=== PATIENT | male | born 1990 | race Caucasian/White ===

== ENCOUNTER 2018-08-26 12:48 | Emergency (ER) | payer OTHER ==
[~2018-08-26] VITALS: Ht 175.3 cm; Wt 97.5 kg
--- OUTSIDE RECORDS SUMMARY | 2018-08-26 12:53 | XMS REPORT ---
Author Author GREGORY ANDERSEN Organization [facility] Address [address] [place] [address] Care Team Providers Care Director Social Welfare Name Role Phone ROMEROJOSE ALFREDO TELLESDENISHA Unavailable PROBLEMS Type Condition ICD9-CM Code LUJ25-CX Code Onset Dates Condition Status SNOMED Code Problem Allergic rhinitis, cause unspecified 477.9 Active 81373226 Problem Open wound of finger(s), without mention of complication 883.[address] of occurrence, industrial places and premises E849.3 Active ALLERGIES No Known Allergies ENCOUNTERS Encounter Location Date Diagnosis [address] [id number] Mar, Irritation of right eye H57.[address] [id number] Oct, Acute bronchitis, unspecified organism J20.[address] [id number] Jun, Laceration of finger of left hand, subsequent encounter S61.219D and Visit for suture removal Z48.02 [address] [place] [id number] [place] [id number] May, Encounter for immunization Z23 [address] [id number] Sep, Sprain of left ankle, unspecified ligament, initial encounter S93.402A [address] [id number] Feb, Upper respiratory tract infection, unspecified type J06.9 [facility] [id number] [place] [address] 14 Jun, 2014 [facility] [address] [address] Jun, [facility] [address] [facility] [id number][place] [id number] May, [facility] [address] [facility] [id number] [place] [address] May, [facility] [address] [facility] [id number], [place] [id number] Dec, [facility] [address] [facility] [id number] [place] [address] Dec, [facility] [address] [facility] [id number], [place] [id number] May, [facility] [address] [facility] [id number] [place] [address] May, [facility] [address] [facility] [id number], [place] [id number] May, [facility] [address] [facility] [id number] [place] [address] May, [facility] [address] [facility] [id number], [place] [phone] Jun, IMMUNIZATIONS No Known Immunizations SOCIAL HISTORY Never Assessed REASON FOR VISIT here for suture removal from left hand, middle finger. marc Foreman PLAN OF CARE Activity Details Follow Up prn Reason: VITAL SIGNS Height 68 in 2016-07-02 Weight 215 lbs 2016-07-02 Temperature 98.2 degrees Fahrenheit 2016-07-02 Heart Rate 78 bpm 2016-07-02 Respiratory Rate 16 2016-07-02 BMI 32.69 kg/m2 2016-07-02 Blood pressure systolic 120 mmHg 2016-07-02 Blood pressure diastolic 72 mmHg 2016-07-02 MEDICATIONS Medication Instructions Dosage Frequency Start Date End Date Duration Status Claritin 10 MG Orally Once a day 1 tablet 24h Active Omeprazole 20 MG Orally Once a day 1 capsule 24h Active RESULTS No Results PROCEDURES No Known procedures INSTRUCTIONS MEDICATIONS ADMINISTERED No Known Medications
--- OUTSIDE RECORDS SUMMARY | 2018-08-26 12:53 | XMS REPORT ---
Author Author Migration, Doctor Organization [facility] Address Unknown Phone Unavailable Care Team Providers Care Account Maintenance Representative Name Role Phone Migration, Doctor Unavailable Unavailable PROBLEMS Type Condition ICD9-CM Code SLH97-RG Code Onset Dates Condition Status SNOMED Code Problem Open wound of finger(s), without mention of complication 883.0 Active 9508375 Problem Allergic rhinitis, cause unspecified 477.[address] of occurrence, industrial places and premises E849.3 Active ALLERGIES No Information ENCOUNTERS Encounter Location Date Diagnosis [place] [id number] [place] [id number] Mar, 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.[address] [id number] Aug, Myalgia M79.1 and Folliculitis L73.[address] [id number] Mar, Irritation of right eye H57.[address] [id number] Oct, Acute bronchitis, unspecified organism J20.[address] [id number] Jun, Laceration of finger of left hand, subsequent encounter S61.219D and Visit for suture removal Z48.02 [address] [id number] [place] [address] [id number] May, Encounter for immunization Z23 [address] [id number] Sep, Sprain of left ankle, unspecified ligament, initial encounter S93.402A [place] [id number] [place] [address] [id number] Feb, Upper respiratory tract infection, unspecified type J06.9 [facility] [address] [id number] [place] [address] Jun, [facility] [address] [facility] [id number], [place] [address] Jun, [facility] [address] [id number][place] [phone] May, [facility] [address] [facility] [id number], [place] [address] May, [facility] [id number], [place] [phone] Dec, [facility] [address] [facility] [id number], [place] [address] Dec, [facility] [address] [id number], [place] [phone] May, [facility] [address] [facility] [id number], [place] [address] May, [facility] [address] [id number][place] [id number] May, [facility] [address] [facility] [place] [place] [id number], [place] [address] May, [facility] [address] [facility] [id number][place] [phone] Jun, IMMUNIZATIONS No Known Immunizations SOCIAL HISTORY Never Assessed REASON FOR VISIT EMR-[facility] [place] [place] PLAN OF CARE VITAL SIGNS MEDICATIONS Medication Instructions Dosage Frequency Start Date End Date Duration Status Cljctmgk-Vsajquewg-FZ 3.5-10,000-1 mg/mL-unit/mL-% 2 drop by Otic route 4 times per day for 7 day(s) Dec, Active PredniSONE 20 mg 1 tablet by Oral route 2 times per day for 5 day(s) Jun, Active Augmentin 875-125 mg 1 tablet by Oral route 2 times per day for 7 day(s) May, Active RESULTS No Results PROCEDURES No Known procedures INSTRUCTIONS MEDICATIONS ADMINISTERED No Known Medications MEDICAL (GENERAL) HISTORY Type Description Date Surgical History No Surgical history information
--- OUTSIDE RECORDS SUMMARY | 2018-08-26 12:53 | XMS REPORT ---
Author Author PARISH DILLARD Organization [employer] Address Unknown Phone Unavailable Care Team Providers Care Utility Manager Name Role Phone PARISH DILLARD CP Unavailable Allergies, Adverse Reactions, Alerts Substance Reaction Event Type N.K.D.A. Info Not Available Non Drug Allergy Problems Problem Type Condition Code Onset Dates Condition Status Problem Open wound of finger(s), without mention of complication 883.0 Active Problem Allergic rhinitis, cause unspecified 477.[address] of occurrence, industrial places and premises E849.3 Active Assessment Sprain of left ankle, unspecified ligament, initial encounter S93.402A Active Medications Medication Code System Code Instructions Start Date End Date Status Dosage Claritin [facility] [address]-33 10 MG Orally Once a day 1 tablet Ibuprofen [facility] [address]-18 800 MG Orally Three times a day October 18, 2015 Nov 17, 2015 1 tablet Omeprazole [facility] [address]-94 20 MG Orally Once a day 1 capsule Procedures Procedure Coding System Code Date Office Visit, Est Pt., Level 3 CPT-4 48380 October 18, 2015 Vital Signs Date/Time: October 18, 2015 Cardiac Monitoring Heart Rate 72 bpm Weight 220.6 lbs Height 68 in Blood Pressure Diastolic 64 mmHg Blood Pressure Systolic 120 mmHg Results No Known Results Summary Purpose [employer] Submission
--- OUTSIDE RECORDS SUMMARY | 2018-08-26 12:53 | XMS REPORT ---
Author Author PARISH DILLARD Organization [employer] Address Unknown Phone Unavailable Care Team Providers Care Yard Jacker Name Role Phone PARISH DILLARD CP Unavailable Allergies, Adverse Reactions, Alerts Substance Reaction Event Type N.K.D.A. Info Not Available Non Drug Allergy Problems Problem Type Condition Code Onset Dates Condition Status Problem Open wound of finger(s), without mention of complication 883.0 Active Problem Allergic rhinitis, cause unspecified 477.[address] of occurrence, industrial places and premises E849.3 Active Assessment Upper respiratory tract infection, unspecified type J06.9 Active Medications No Known Medications Procedures Procedure Coding System Code Date Office Visit, Est Pt., Level 3 CPT-4 66416 Mar 14, 2015 Vital Signs Date/Time: Mar 14, 2015 Temperature 97.2 F Weight 219.0 lbs Height 68 in BMI 33.30 Index Blood Pressure Diastolic 68 mmHg Blood Pressure Systolic 126 mmHg Cardiac Monitoring Heart Rate 74 bpm Results No Known Results Summary Purpose [employer] Submission
--- OUTSIDE RECORDS SUMMARY | 2018-08-26 12:53 | XMS REPORT ---
Author Author PARISH DILLARD [facility] Address [address] [place] [address] Care Team Providers Care Bank Examiner Name Role Phone PARISH DILLARD Unavailable PROBLEMS Type Condition ICD9-CM Code MEH03-HP Code Onset Dates Condition Status SNOMED Code Problem Allergic rhinitis, cause unspecified 477.9 Active 48114192 Problem Open wound of finger(s), without mention of complication 883.[address] of occurrence, industrial places and premises E849.3 Active ALLERGIES No Known Allergies ENCOUNTERS Encounter Location Date Diagnosis [address] [id number] Aug, Myalgia M79.1 and Folliculitis L73.[address] [id number] Mar, Irritation of right eye H57.[address] [id number] Oct, Acute bronchitis, unspecified organism J20.[address] [id number] Jun, Laceration of finger of left hand, subsequent encounter S61.219D and Visit for suture removal Z48.[address] [id number] May, Encounter for immunization Z23 [address] [id number] Sep, Sprain of left ankle, unspecified ligament, initial encounter S93.402A [place] [id number] [place] [address] [id number] Feb, Upper respiratory tract infection, unspecified type J06.9 [facility] [id number] [place] [address] Jun, [facility] [address]00565100[place], [place] [address] Jun, [facility] [address] [id number], [place] [phone] May, [facility] [address] [id number], [place] [address] May, [facility] [id number], [place] [phone] Dec, [facility] [address] [facility] [id number], [place] [address] Dec, [facility] [id number], [place] [phone] May, [facility] [address]00565100[place], [place] [address] May, [facility] [id number], [place] [id number] May, [facility] [address] [facility] [id number], [place] [address] May, [facility] [address] [id number], [place] [phone] Jun, IMMUNIZATIONS No Known Immunizations SOCIAL HISTORY Never Assessed REASON FOR VISIT having left muscle pain above shoulder x 2 months, just getting worse. marc Liang PLAN OF CARE Activity Details Follow Up prn Reason: VITAL SIGNS Height 68 in 2017-09-17 Weight 207 lbs 2017-09-17 Temperature 98.2 degrees Fahrenheit 2017-09-17 Heart Rate 80 bpm 2017-09-17 Respiratory Rate 16 2017-09-17 BMI 31.47 kg/m2 2017-09-17 Blood pressure systolic 122 mmHg 2017-09-17 Blood pressure diastolic 72 mmHg 2017-09-17 MEDICATIONS Medication Instructions Dosage Frequency Start Date End Date Duration Status Cephalexin 500 mg Orally 3 times a day 1 capsule 8h Aug, Aug, 10 day(s) Active Ibuprofen 800 MG Orally Three times a day 1 tablet with food or milk as needed 8h 20 Zaid, 2018 Active RESULTS No Results PROCEDURES No Known procedures INSTRUCTIONS MEDICATIONS ADMINISTERED No Known Medications
--- OUTSIDE RECORDS SUMMARY | 2018-08-26 12:53 | XMS REPORT ---
Author Author GREGORY ANDERSEN Organization [facility] Address [address] [place] [address] Care Team Providers Care Responder Name Role Phone ROMEROEVERTONKOSTAS TELLESDENISHA Unavailable PROBLEMS Type Condition ICD9-CM Code VUC48-TF Code Onset Dates Condition Status SNOMED Code Problem Allergic rhinitis, cause unspecified 477.9 Active 94423802 Problem Open wound of finger(s), without mention of complication 883.[address] of occurrence, industrial places and premises E849.3 Active ALLERGIES No Known Allergies ENCOUNTERS Encounter Location Date Diagnosis [address] [id number] Aug, Myalgia M79.1 and Folliculitis L73.[address] [id number] Mar, Irritation of right eye H57.[address] [id number] Oct, Acute bronchitis, unspecified organism J20.[address] [id number] Jun, Laceration of finger of left hand, subsequent encounter S61.219D and Visit for suture removal Z48.02 [address] [place] [id number] [place] [id number] May, Encounter for immunization Z23 [address] [id number] Sep, Sprain of left ankle, unspecified ligament, initial encounter S93.402A [address] [id number] Feb, Upper respiratory tract infection, unspecified type J06.9 [facility] [address] [facility] [id number] [address] Jun, [facility] [address] [id number], [place] [address] Jun, [facility] [address] [id number], [place] [id number] May, [facility] [address] [facility] [id number], [place] [address] May, [facility] [id number], [place] [id number] Dec, [facility] [address] [facility] [id number], [place] [address] Dec, [facility] [id number], [place] [id number] May, [facility] [address]00565100[place], [place] [address] May, [facility] [address] [id number], [place] [id number] May, [facility] [address] [facility] [id number], [place] [address] May, [facility] [address] [id number], [place] [id number] Jun, IMMUNIZATIONS No Known Immunizations SOCIAL HISTORY Never Assessed REASON FOR VISIT states he felt like he had something in his right eye this morning, just has got ten worse throughout the day. Very irritated. marc Foreman PLAN OF CARE Activity Details Follow Up prn if not improving Reason: VITAL SIGNS Height 68 in 2017-04-15 Weight 222.2 lbs 2017-04-15 Temperature 98.3 degrees Fahrenheit 2017-04-15 Heart Rate 80 bpm 2017-04-15 Respiratory Rate 16 2017-04-15 BMI 33.78 kg/m2 2017-04-15 Blood pressure systolic 120 mmHg 2017-04-15 Blood pressure diastolic 78 mmHg 2017-04-15 MEDICATIONS Medication Instructions Dosage Frequency Start Date End Date Duration Status Albuterol Sulfate HFA 108 (90 Base) mcg/act Inhalation 4 times a day 2 puffs as needed 6h 28 Oct, 2016 Not-Taking Omeprazole 20 MG Orally Once a day 1 capsule 24h Not-Taking Claritin 10 MG Orally Once a day 1 tablet 24h Not-Taking RESULTS No Results PROCEDURES No Known procedures INSTRUCTIONS MEDICATIONS ADMINISTERED No Known Medications
--- OUTSIDE RECORDS SUMMARY | 2018-08-26 12:53 | XMS REPORT ---
Author Author Migration, Doctor Organization [facility] Address Unknown Phone Unavailable Care Team Providers Care Food Broker Name Role Phone Migration, Doctor Unavailable Unavailable PROBLEMS Type Condition ICD9-CM Code ZZN70-MK Code Onset Dates Condition Status SNOMED Code Problem Open wound of finger(s), without mention of complication 883.0 Active 0906070 Problem Allergic rhinitis, cause unspecified 477.[address] of occurrence, industrial places and premises E849.3 Active ALLERGIES No Information ENCOUNTERS Encounter Location Date Diagnosis [address] [place] [id number] [place] [id number] Mar, 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.[address] [id number] Aug, Myalgia M79.1 and Folliculitis L73.[address] [id number] Mar, Irritation of right eye H57.[address] [id number] Oct, Acute bronchitis, unspecified organism J20.[address] [id number] Jun, Laceration of finger of left hand, subsequent encounter S61.219D and Visit for suture removal Z48.02 [address] [id number] [place] [address] [id number] May, Encounter for immunization Z23 [address] [id number] Sep, Sprain of left ankle, unspecified ligament, initial encounter S93.402A [address] [place] [id number] [place] [address] [id number] Feb, Upper respiratory tract infection, unspecified type J06.9 [facility] [address] [id number] [address] Jun, [facility] [address] [facility] [id number][place] [address] Jun, [facility] [address] [id number], [place] [id number] May, [facility] [address] [facility] [id number], [place] [address] May, [facility] [address]65100[place], [place] [id number] Dec, [facility] [address] [facility] [id number], [place] [address] Dec, [facility] [address] [id number], [place] [id number] May, [facility] [address] [facility] [id number], [place] [address] May, [facility] [address] [id number], [place] [id number] May, [facility] [address] [facility] [id number], [place] [address] May, [facility] [address] [id number], [place] [id number] Jun, IMMUNIZATIONS No Known Immunizations SOCIAL HISTORY Never Assessed REASON FOR VISIT EMR-[facility] PLAN OF CARE VITAL SIGNS MEDICATIONS No Known Medications RESULTS No Results PROCEDURES No Known procedures INSTRUCTIONS MEDICATIONS ADMINISTERED No Known Medications MEDICAL (GENERAL) HISTORY Type Description Date Surgical History No Surgical history information
--- OUTSIDE RECORDS SUMMARY | 2018-08-26 12:53 | XMS REPORT ---
Author Author PARISH DILLARD [facility] Address [address] [place] [address] Care Team Providers Care Mixing Supervisor Name Role Phone PARISH DILLARD Unavailable PROBLEMS Type Condition ICD9-CM Code ESL17-KL Code Onset Dates Condition Status SNOMED Code Problem Allergic rhinitis, cause unspecified 477.9 Active 08296529 Problem Open wound of finger(s), without mention of complication 883.[address] of occurrence, industrial places and premises E849.3 Active ALLERGIES No Information SOCIAL HISTORY Never Assessed PLAN OF CARE VITAL SIGNS MEDICATIONS No Known Medications RESULTS No Results PROCEDURES Procedure Date Ordered Result Body Site TDAP (BOOSTRIX) June 24, 2016 SINGLE IMMUNIZATION ADMIN June 24, 2016 IMMUNIZATIONS Vaccine Route Administration Date Status TDAP (BOOSTRIX) IM Intramuscular June 24, 2016 Administered
--- OUTSIDE RECORDS SUMMARY | 2018-08-26 12:54 | XMS REPORT | Continuity of Care Document ---
Author Organization Unknown Address Unknown Allergies There is no data. Medications There is no data. Problems Date Dx Coded Attending Type Code Diagnosis Diagnosed By 07/13/2012 477.9 RHINITIS 07/13/2012 SAKINA GOYAL DO 477.9 RHINITIS 07/13/2012 SAKINA GOYAL DO 477.9 RHINITIS 05/10/2013 SAKINA GOYAL DO 883.0 OPEN WOUND OF FINGERS WITHOUT COMPLICATION 05/10/2013 SAKINA GOYAL DO E849.3 ACCIDENTS OCCURRING IN INDUSTRIAL PLACES AND PREMISES 05/10/2013 SAKINA GOYAL DO 883.0 OPEN WOUND OF FINGERS WITHOUT COMPLICATION 05/10/2013 SAKINA GOYAL DO E849.3 ACCIDENTS OCCURRING IN INDUSTRIAL PLACES AND PREMISES 05/20/2013 SAKINA GOYAL DO NODX NO DIAGNOSIS Procedures Code Description [place] [address] NO CHARGE 05/20/2013 Results There is no data. Encounters ACCT No. Visit Date/Time Discharge Status Pt. Type Provider Facility Loc./Unit Complaint [id number] 05/20/2013 11:46:00 05/20/2013 23:59:59 CLS Outpatient SAKINA GOYAL DO [id number] 05/10/2013 10:55:00 05/10/2013 23:59:59 CLS Outpatient SAKINA GOYAL DO [id number] 07/13/2012 14:29:00 Document Registration [id number] 04/30/2018 11:00:00 04/30/2018 23:59:59 CLS [facility]
[2018-08-26] MEDS ORDERED: TETANUS,DIPTH,PERTUSS P/F (BOOSTRIX) 0.5 ML VIAL IM ONE (13:15)
[2018-08-26] MEDS ORDERED: AMOX-358 PO (13:25)
--- NOTE | 2018-08-26 13:25 | ED Integumentary General ---
General Chief Complaint: Skin/Wound Problems Stated Complaint: ANIMAL SCRATCH Nursing Triage Note: PATIENT STATES THAT YESTERDAY HE WAS TRYING TO GET A KITTEN OUT OF HIS GARAGE AND WAS SCRATCHED IN THE PROCESS. SOMEONE FROM [facility] RECOMMENDED THAT HE COME HERE TO GET ANTIBIOTIC AND POSSIBLE RABIES SHOT. Source: patient Exam Limitations: no limitations History of Present Illness Date Seen by Provider: August 26, 2018 Time Seen by Provider: 13:21 Initial Comments 28-year-old male who presents to the emergency room with complaints of scratches and bites to his hands bilaterally after trying to remove a kitten from his garage. Reports that this is a neighbor's kitten and he is concerned with poss ible infection and a tetanus vaccine. He will be able to watch the cat for rabies activity. Timing/Duration: yesterday Associated Symptoms: denies symptoms Allergies and Home Medications Allergies Coded Allergies: No Known Drug Allergies (Unverified , 08/26/18) Home Medications Amoxicillin/Potassium Clav 1 Each Tablet, 1 EACH PO BID Prescribed by: MAHESH GUSTAFSON on 08/26/18 1325 Patient Home Medication List Home Medication List Reviewed: Yes Review of Systems Review of Systems Constitutional: see HPI; No chills, No fever Skin: see HPI, other (abrasions to hands bilaterally) All Other Systems Reviewed Negative Unless Noted: Yes Past [id number] Hx Past Med/Social Hx: Reviewed Nursing Past Med/Soc Hx Patient Social History Alcohol Use: Occasionally Uses Recreational Drug Use: No Smoking Status: Current Everyday Smoker Type Used: Cigarettes 2nd Hand Smoke Exposure: Yes Recent Foreign Travel: No Contact w/Someone Who Travel: No Recent Infectious Disease Expo: No Recent Hopitalizations: No Seasonal Allergies Seasonal Allergies: No Past Medical History Surgeries: Yes (WISDOM TEETH) Respiratory: No Cardiac: No Neurological: No Genitourinary: No Gastrointestinal: No Musculoskeletal: No Endocrine: No HEENT: No Cancer: No Psychosocial: No Blood Disorders: No Family Medical History Reviewed Nursing Family Hx Physical Exam Vital Signs Vital Signs - First Documented 08/26/18 08/26/18 12:51 14:02 Temp 98.0 Pulse 80 Resp 18 B/P (MAP) 142/88 (106) Pulse Ox 98 O2 Delivery Room Air Capillary Refill : Less Than 3 Seconds General Appearance: WD/WN, no apparent distress Cardiovascular: normal peripheral pulses, regular rate, rhythm, no edema, no gallop, no JVD, no murmur Respiratory: chest non-tender, lungs clear, normal breath sounds, no respiratory distress, no accessory muscle use Neurologic/Psychiatric: alert, normal mood/affect, oriented x 3 Skin: normal color, warm/dry, other (abrasions to hands bilaterally) Progress/Results/Core Measures Results/Orders My Orders Orders - MAHESH GUSTAFSON Dipht,Pertuss(Acell),Tet Adult (Boostrix (08/26/18 13:15) Amoxicillin/Clavulanate Tablet (Augmenti (08/26/18 17:00) Amoxicillin/Clavulanate Tablet (Augmenti (08/26/18 13:41) Vaccine Administration Single (08/26/18 ) Vital Signs/I&O 08/26/18 08/26/18 12:51 14:02 Temp 98.0 98.0 Pulse 80 80 Resp 18 18 B/P (MAP) 142/88 (106) 142/88 (106) Pulse Ox 98 98 O2 Delivery Room Air Blood Pressure Mean: 106 Departure Impression Primary Impression: Cat bite of finger Disposition: 01 HOME, SELF-CARE Condition: Stable/Unchanged Departure-Patient Inst. Decision time for Depature: 13:22 Referrals: SAKINA GOYAL DO Patient Instructions: Animal Bites (DC) Add. Discharge Instructions: Take medications as directed. Observe the cat for any changes. Return back to the emergency room for worsening symptoms or concerns as needed. Follow-up with primary care provider within 1 week for recheck. All discharge instructions reviewed with patient and/or family. Voiced understanding. Scripts Amoxicillin/Potassium Clav (Augmentin 875-125 Tablet) 1 Each Tablet 1 EACH PO BID for 10 Days, #20 TAB 0 Refills Prov: MAHESH GUSTAFSON 08/26/18 MAHESH GUSTAFSON August 26, 2018 13:25
[2018-08-26] MEDS ORDERED: AUGMENTIN 875 MG TAB (AMOXICILLIN/CLAVULANATE) ONE (13:41)
[2018-08-26 14:02] VITALS: BP 142/88
[2018-08-26] MEDS ORDERED: AUGMENTIN 875 MG TAB (AMOXICILLIN/CLAVULANATE) PO SCH (17:00)
== END 2018-08-26 14:01 | disposition home or self-care (01) ==
LOC: ER 12:49
DX: S61.451A Open bite of right hand, initial encounter (principal); S61.452A Open bite of left hand, initial encounter; F17.210 Nicotine dependence, cigarettes, uncomplicated; Z23 Encounter for immunization; W55.01XA Bitten by cat, initial encounter
CPT/HCPCS: 90471; 90715; 99283